=== PATIENT | female | born 1950 | race Caucasian/White ===

== ENCOUNTER 2020-08-20 11:00 | Emergency (ER) | payer MEDICARE, OTHER ==
[~2020-08-20] VITALS: Wt 72.9 kg
[2020-08-20] MEDS ORDERED: LEVOTHYROXINE13 MCG (11:13)
[2020-08-20] MEDS ORDERED: PROTONIX20 M1 (11:13)
[2020-08-20] MEDS ORDERED: ELIQUIS5 MG PO (11:13)
[2020-08-20 11:31] LABS: BASO # 0.1 (0.02-0.10); EOS # 0.2 (0.04-0.40); EOS % 3.6 % (1.0-5.0); HEMATOCRIT 42.3 % (37.0-47.0); HEMOGLOBIN 13.6 g/dL (12.5-16.0); LYMPH# 1.4 (1.50-4.00); MEAN CELL VOLUME 95 fl (78-100); MEAN CORPUSCULAR HEMOGLOBIN 31 pg (27-31); MEAN CORPUSCULAR HGB CONC 32 g/dL (33-37); MEAN PLATELET VOLUME 10.8 fl (7.4-10.4); MONO # 0.7 (0.20-0.80); NEU # 3.9 (1.40-6.50); PLATELET COUNT 290 K/mm3 (130-400); RED BLOOD COUNT 4.45 M/mm3 (4.10-5.30); RED CELL DISTRIBUTION WIDTH 14.6 % (11.5-14.5); WHITE BLOOD COUNT 6.4 K/mm3 (4.8-10.8)
[2020-08-20 11:42] LABS: ALBUMIN 3.9 g/dL (3.4-4.8); POTASSIUM 3.8 mmol/L (3.5-5.1); SODIUM 141 mmol/L (136-145)
[2020-08-20 11:43] LABS: CALCIUM 9.2 mg/dL (8.3-10.5)
[2020-08-20 11:44] LABS: GLUCOSE 98 mg/dL (65-105); TOTAL PROTEIN 6.6 g/dL (6.2-8.1)
[2020-08-20 11:45] LABS: CARBON DIOXIDE 21 mmol/L (23-31)
[2020-08-20 11:46] LABS: TOTAL BILIRUBIN 0.7 mg/dL (0.2-1.2)
[2020-08-20 11:50] LABS: AST-SGOT 22 U/L (5-34)
[2020-08-20 11:51] LABS: ALT/SGPT 24 U/L (0-55)
[2020-08-20 12:02] LABS: TROPONIN-I < 0.03 ng/mL (<0.030)
[2020-08-20 12:03] LABS: D-DIMER 0.2 mg/L FEU (0.15-0.50)
[2020-08-20] MEDS ORDERED: VIBRAMYCIN HYC100 MG PO (13:34)
[2020-08-20 14:26] VITALS: BP 119/77
== END 2020-08-20 13:46 | disposition home or self-care (01) ==
LOC: ED 11:00
PROVIDERS: Nurse Practitioner Family; Physician Assistant
DX: J84.9 Interstitial pulmonary disease, unspecified (principal); F41.9 Anxiety disorder, unspecified; Z86.16 Personal history of COVID-19; Z86.711 Personal history of pulmonary embolism; Z86.718 Personal history of other venous thrombosis and embolism; Z88.0 Allergy status to penicillin; Z88.2 Allergy status to sulfonamides; Z88.8 Allergy status to other drugs, medicaments and biological substances; Z79.01 Long term (current) use of anticoagulants; Z79.890 Hormone replacement therapy